=== PATIENT | male | born 1980 | race Caucasian/White ===

== ENCOUNTER 2017-01-03 01:27 | Emergency (ER) | payer OTHER ==
[~2017-01-03] VITALS: Ht 177.8 cm; Wt 83.9 kg
[2017-01-03] MEDS ORDERED: VENTOLIN HFA18 GM INH (04:40)
[2017-01-03] MEDS ORDERED: ZITHROMAX250 MG PO (04:40)
[2017-01-03] MEDS ORDERED: NORCO 5-325 TA1 EACH PO (04:40)
--- NOTE | 2017-01-03 21:55 | EKG ---
[facility] [address] [facility] [place] [address] Signed Sinus tachycardia Otherwise normal ECG No previous ECGs available Confirmed by NICHO BUCIO MD ([id number] on 01/03/2017 9:54:55 PM Electronically Signed By: NICHO BUCIO MD 01/03/17 [id number] PATIENT NAME: ROBYN MARIE Electrocardiogram DATE OF : 84 PHYSICIAN: NICHO BUCIO MD REPORT #: [id number] REPORT IS CONFIDENTIAL AND NOT TO BE RELEASED WITHOUT AUTHORIZATION
== END 2017-01-03 05:04 | disposition home or self-care (01) ==
LOC: ED 01:27
DX: J18.9 Pneumonia, unspecified organism (principal); I10 Essential (primary) hypertension; F17.200 Nicotine dependence, unspecified, uncomplicated
CPT/HCPCS: 71020; 71260; 80053; 85025; 93005; 93010; 94640; 96361; 96374; 96375; 99284; J0696; J2405; J3010; J7030; Q9967

== ENCOUNTER 2019-10-07 21:28 | Emergency (ER) | payer OTHER ==
[~2019-10-07] VITALS: Ht 177.8 cm; Wt 95.2 kg
[~2019-10-07 21:28] MED LIST: NORCO 5-325 TA1 EACH PO; VENTOLIN HFA18 GM INH; ZITHROMAX250 MG PO
[2019-10-07] MEDS ORDERED: AMLODIPINE BESY10 MG PO (21:42)
[2019-10-07] MEDS ORDERED: OMEPRAZOLE20 MG PO (21:43)
== END 2019-10-07 22:15 | disposition home or self-care (01) ==
LOC: ED 21:28
PROC: 0XQNXZZ Repair Right Index Finger, External Approach (ICD-10-PCS; principal; 2019-10-07)
DX: S61.210A Laceration without foreign body of right index finger without damage to nail, initial encounter (principal); F17.200 Nicotine dependence, unspecified, uncomplicated; Z79.899 Other long term (current) drug therapy; W26.0XXA Contact with knife, initial encounter
CPT/HCPCS: 12002; 99282-25

== ENCOUNTER 2022-12-22 22:01 | Emergency (ER) | payer OTHER ==
[~2022-12-22] VITALS: Ht 177.8 cm; Wt 95.2 kg
[~2022-12-22 22:01] MED LIST changes: +AMLODIPINE BESY10 MG PO; +OMEPRAZOLE20 MG PO
[2022-12-22 23:17] VITALS: BP 151/98
== END 2022-12-22 23:19 | disposition home or self-care (01) ==
LOC: ED 22:01
DX: T16.1XXA Foreign body in right ear, initial encounter (principal); F17.200 Nicotine dependence, unspecified, uncomplicated
CPT/HCPCS: 69200; 99282-25

== ENCOUNTER 2023-04-19 23:22 | Emergency (ER) | payer OTHER ==
[~2023-04-19] VITALS: Ht 177.8 cm; Wt 87.9 kg
--- NOTE | ~2023-04-19 | EKG ---
[facility] [address] [facility] [place], [place] [address] Draft EKG completed, results pending confirmation PATIENT NAME: FRANKROBYN Electrocardiogram DATE OF : 84 PHYSICIAN: PRELIMINARY REPORT #: [id number] REPORT IS CONFIDENTIAL AND NOT TO BE RELEASED WITHOUT AUTHORIZATION
[2023-04-19 23:47] LABS: BASOPHILS 0.5 % (0-2); EOSINOPHILS 1.8 % (0-6); HEMATOCRIT 37.7 % (35.0-50.0); LYMPHOCYTES 21.5 % (24-44); MCH 30.7 (27-36); MCHC 34.4 g/dl (30-36); MCV 89.3 fl (81-99); MONOCYTES 15.9 % (0-12); NEUTROPHILS 60.3 % (39-80); PLATELET COUNT 121 K/uL (140-440); RBC 4.23 M/ul (4.3-5.7); RDW 12.8 (10.5-15.0)
[2023-04-20 00:05] LABS: ALBUMIN/GLOBULIN RATIO 0.77 (1.1-2.4); ALKALINE PHOSPHATASE 92 U/L (46-116); ALT (SGPT) 10 U/L (14-59); ANION GAP 10.9 (7-21); AST (SGOT) 14 U/L (15-37); BILIRUBIN, TOTAL 0.6 ng/dL (0.2-1.0); BUN/CREATININE RATIO 5.71 (6.0-28.6); CALCIUM 8.8 mg/dL (8.5-10.1); CARBON DIOXIDE 29 mmol/L (21-32); CHLORIDE 95 mmol/L (98-107); GLOMERULAR FILTRATION RATE,EST 119 mL/min (>60); MAGNESIUM 1.6 mg/dL (1.8-2.4); POTASSIUM 3.9 mmol/L (3.5-5.1); PROTEIN, TOTAL 6.9 g/dL (6.4-8.2); UREA NITROGEN 4 mg/dL (7-18)
[2023-04-20 00:49] LABS: BILIRUBIN, URINE NEGATIVE (negative); BLOOD/HGB, URINE NEGATIVE (Negative); KETONE, URINE NEGATIVE (Negative); LEUK ESTERASE, URINE NEGATIVE (negative); NITRITE, URINE NEGATIVE (negative); PH, URINE 6.5 (5-7)
[2023-04-20] MEDS ORDERED: CYCLOBENZAPRINE10 MG PO (03:01)
[2023-04-20] MEDS ORDERED: LIDODERM1 EACH TOP (03:01)
[2023-04-20 03:25] VITALS: BP 149/91
[2023-04-21] MEDS ORDERED: HYDROCODON-ACE1 EA10 PO (14:29)
== END 2023-04-20 03:26 | disposition home or self-care (01) ==
LOC: ED 23:22
PROVIDERS: Internal Medicine
DX: S29.012A Strain of muscle and tendon of back wall of thorax, initial encounter (principal); X58.XXXA Exposure to other specified factors, initial encounter; R07.9 Chest pain, unspecified; I10 Essential (primary) hypertension; F17.200 Nicotine dependence, unspecified, uncomplicated; Z79.899 Other long term (current) drug therapy
CPT/HCPCS: 36415; 71045; 71260; 80053; 81003; 83735; 84484; 85025; 85379; 93005; 93010; 99285-25; A9270; J7121; Q9967

== ENCOUNTER 2023-09-21 21:41 | Emergency (ER) | payer OTHER ==
[~2023-09-21] VITALS: Ht 177.8 cm; Wt 98.6 kg
[~2023-09-21 21:41] MED LIST changes: +CYCLOBENZAPRINE10 MG PO; +HYDROCODON-ACE1 EA10 PO; +LIDODERM1 EACH TOP
[2023-09-21] MEDS ORDERED: OMEPRAZOLE40 MG PO (21:50)
[2023-09-21] MEDS ORDERED: ACYCLOVIR800 MG PO (21:50)
[2023-09-21] MEDS ORDERED: PREDNISONE20 MG PO (21:51)
[2023-09-21] MEDS ORDERED: SULFAMETHOXAZO1 EAC1 PO (21:51)
[2023-09-21] MEDS ORDERED: ALLOPURINOL300 MG PO (21:51)
[2023-09-21] MEDS ORDERED: [UNRECOGNIZED DRUG - OTHER] IV (22:17)
[2023-09-21] MEDS ORDERED: RITUXAN10 MG/1 ML IV (22:18)
[2023-09-21] MEDS ORDERED: CYTOXAN (22:21)
[2023-09-21] MEDS ORDERED: ADRIAMYCIN (22:22)
[2023-09-21] MEDS ORDERED: [UNRECOGNIZED DRUG - OTHER] (22:23)
[2023-09-21] MEDS ORDERED: [UNRECOGNIZED DRUG - OTHER] (22:23)
[2023-09-21 22:31] LABS: HEMATOCRIT 36.8 % (35.0-50.0); HEMOGLOBIN 12.7 g/dL (12.0-18.0); MCHC 34.5 g/dl (30-36)
[2023-09-21 22:33] LABS: PLATELET COUNT 99 K/uL (140-440); RBC 4.23 M/ul (4.3-5.7); RDW 18.4 (10.5-15.0)
[2023-09-21 22:45] LABS: ALBUMIN 3.7 g/dL (3.4-5.0); ALBUMIN/GLOBULIN RATIO 1.32 (1.1-2.4); ANION GAP 15.5 (7-21); BILIRUBIN, TOTAL 0.3 ng/dL (0.2-1.0); BUN/CREATININE RATIO 9.09 (6.0-28.6); CALCIUM 8.5 mg/dL (8.5-10.1); CREATININE, SERUM 0.99 mg/dL (0.70-1.30); POTASSIUM 3.5 mmol/L (3.5-5.1); PROTEIN, TOTAL 6.5 g/dL (6.4-8.2)
[2023-09-21 22:59] LABS: BANDS, MANUAL DIFF 1; BASOPHILS, MANUAL DIFF 1; EOSINOPHILS, MANUAL DIFF 10; LYMPHOCYTES, MANUAL DIFF 39; MONOCYTES, MANUAL DIFF 17; NEUTROPHILS, MANUAL DIFF 32
[2023-09-21 23:26] LABS: INFLUENZA B NAA NEGATIVE (NEGATIVE); RESPIRATORY SYNCYTIAL VIR NAA NEGATIVE (NEGATIVE)
[2023-09-21] MEDS ORDERED: INHALER, ASSIST DEVICES 1 EACH SPACER MISC ONE (23:45)
[2023-09-21] MEDS ORDERED: GUAIFENESIN/CODEINE 60 ML HOME.PACK PO ONE (23:45)
[2023-09-21] MEDS ORDERED: ALBUTEROL SULFATE 8 GM HOME.PACK INH ONE (23:45)
[2023-09-21] MEDS ORDERED: AZITHROMYCIN 250 MG HOME.PACK PO ONE (23:45)
[2023-09-22] VITALS: BP 133/81
== END 2023-09-22 00:05 | disposition home or self-care (01) ==
LOC: ED 21:41
PROVIDERS: Family Medicine
DX: B34.9 Viral infection, unspecified (principal); I10 Essential (primary) hypertension; F17.200 Nicotine dependence, unspecified, uncomplicated; Z79.899 Other long term (current) drug therapy; Z79.52 Long term (current) use of systemic steroids
CPT/HCPCS: 36415; 71045; 80053; 85025; 87502; 94640; 94664; 99284-25; 99406; U0002